=== PATIENT | female | born 1980 | race Caucasian/White ===

== ENCOUNTER 2021-06-04 15:47 | Observation (INO) ==
[2021-06-04] MEDS ORDERED: SODIUM CHLORIDE 0.9% 1000ML 2,000 ML IV ONE (16:06)
[2021-06-04] MEDS ORDERED: ONDANSETRON INJ 2 MG/ML 2 ML VIAL IV STA ×2 (16:17→18:56)
[2021-06-04] MEDS ORDERED: FAMOTIDINE 20MG IV PUSH 20 MG/5 ML SYR IV STA (16:17)
[2021-06-04] MEDS ORDERED: ACETAMINOPHEN 1,000 MG/100 ML VIAL IV STA (16:17)
[2021-06-04 16:23] LABS: Basophils # (auto) 0.02 K/uL (0-0.2); Basophils % (auto) 0.1 %; Eosinophils # (auto) 0.13 K/uL (0-0.5); Eosinophils % (auto) 0.8 %; Hemoglobin 14.6 g/dL (12.0-16.0); Immature Granulocytes # (auto) 0.05 K/uL (0.00-0.02); Immature Granulocytes % (auto) 0.3 %; Lymphocytes # (auto) 2.11 K/uL (1.2-3.4); Lymphocytes % (auto) 12.7 %; Mean Corpuscular Hemoglobin 31.8 pg (25-34); Mean Corpuscular Hgb Conc 33.2 g/dL (32-36); Mean Corpuscular Volume 95.9 fL (80-100); Mean Platelet Volume 9.6 fL (7.4-10.4); Monocytes # (auto) 0.84 K/uL (0.11-0.59); Monocytes % (auto) 5.1 %; Neutrophils # (auto) 13.44 K/uL (1.4-6.5); Platelet Count 289 K/uL (130-400); RDW Coefficient of Variation 14.1 % (11.5-14.5); RDW Standard Deviation 49.4 fL (36.4-46.3); Red Blood Count 4.59 M/uL (4.2-5.4); White Blood Count 16.59 K/uL (4.8-10.8)
--- NOTE | 2021-06-04 16:30 | Emergency Department Note ---
Impression & Plan Acute appendicitis, Syncope, vasovagal, Leukocytosis ED Provider Note NAME: JUANI LOVELACE AGE: 41 SEX: F ARRIVES VIA: Walk-In INFORMANT: Patient ED PROVIDER(S): Peng Ruiz MD CHIEF COMPLAINT: Abdominal pain, nausea. PLAN: Disposition: Admit MEDICAL DECISION MAKING: The patient is a 41-year-old woman with a past medical history of asthma, o varian cyst who presents to the emergency department for evaluation of abdominal pain coming by her which began today around 2:30 PM when the patient was taking a nap and began to fear severe pain. Per the patient's the patient has had no pain recently but has had flares of pain relating to an ovarian cyst. They deny any recent fevers, chills, cough, congestion, GI or symptoms. They are both vaccinated for COVID-19 and denies any known COVID-19 exposures. On arrival to the emergency department the patient was registered and while in the waiting room began to have worsening pain and fainted. There was report that the patient was not breathing and did not have pulses however as soon as staff evaluated this the patient was breathing and had pulses. Upon my observation of the patient when she entered into her room her color was normal her O2 saturation was 96% on room air her heart rate was normal as was blood pressure. She initially appeared limp as when RN would lift her arm she would let it fall to her body passively. Her eyelids were fluttering. However upon mild sternal rub the patient opened her eyes will answer questions and follow commands giving thumbs up when requested. Normal respiratory rate. The patient is afebrile and has stable vital signs. She appears clinically dry. She has mild lower abdominal tenderness. She has no focal neurologic deficits. EKG without overt acute ischemia. Chest x-ray negative for acute cardiopulmonary process. WBC 16.5K nonspecific. H/H and platelets within normal limits. Chemistry without metabolic acidosis. Electrolytes and LFTs are unremarkable. Troponin negative/undetectable. Procalcitonin is not elevated. hCG was negative. COVID-19 PCR was negative. Influenza PCR was negative. CT of the head negative for acute process. CT of the abdomen pelvis demonstrates acute appendicitis without abscess or perforation. Note is made of the patient's known ovarian cyst described as a 6.5 cm complex lesion containing a septation and has been present as far back as 2006. Additional note is made o f likely uterine fibroids. Patient was given morphine for pain as well as IV antibiotics with cefoxitin. Case was discussed with general surgery, Kelechi Rg PA-C with Dr. Osman general surgery on-call. They admitted the patient for further management/OR. Triage Nursing notes reviewed and agree them. Prior medical records reviewed Vital Signs: reviewed and remarkable for no significant abnormalities Differential diagnosis: Appendicitis, ovarian cyst, ovarian torsion, ectopic , TOA, PID, in fections, diverticulitis, UTI, obstruction, mesenteric ischemia, aortic pathology, inflammatory bowel disease, renal colic, PUD, pancreatitis, biliary pathology, hernia, volvulus, constipation, as well as other pathologies. ER treatment provided: See below. Diagnostics interpreted by me: ECG: Normal sinus rhythm, 64 bpm, no ectopy, no overt ST elevation or depression, QTC 445, QRS 72 Cardiac Monitoring: An order for continuous cardiac monitoring was placed and demonstrated Normal sinus rhythm, 64 bpm, no ectopy. Laboratory studies: See below Imaging studies: See below Consultation(s): Kelechi Rg PA-C with Dr. Osman general surgery on-call. HPI: The patient is a 41-year-old woman with a past medical history of asthma, ovarian cyst who presents to the emergency department for evaluation of abdominal pain coming by her which began today around 2:30 PM when the patient was taking a nap and began to fear severe pain. Per the patient's the patient has had no pain recently but has had flares of pain relating to an ovarian cyst. They deny any recent fevers, chills, cough, congestion, GI or symptoms. They are both vaccinated for COVID-19 and denies any known COVID-19 exposures. On arrival to the emergency department the patient was registered and while in the waiting room began to have worsening pain and fainted. There was report that the patient was not breathing and did not have pulses however as soon as staff evaluated this the patient was breathing and had pulses. Upon my observation of the patient when she entered into her room her color was normal her O2 saturation was 96% on room air her heart rate was normal as was blood pressure. She initially appeared limp as when RN would lift her arm she would let it fall to her body passively. Her eyelids were fluttering. However upon mild sternal rub the patient opened her eyes will answer questions and follow commands giving thumbs up when requested. Normal respiratory rate. ROS: See above HPI for pertinent positives & negatives. A total of 10 systems reviewed and were otherwise negative. PAST MEDICAL HISTORY:See Below PAST SURGICAL HISTORY:See Below FAMILY HISTORY:See Below SOCIAL HISTORY:See Below HOME MEDICATIONS:See Below ALLERGIES:See Below VITALS:See Below PHYSICAL EXAMINATION: GENERAL: Awake, alert, somnolent-appearing, in no distress HENT: Normocephalic, atraumatic. Oropharynx with dry mucous membranes and otherwise unremarkable. EYES: Normal conjunctiva. Sclera non-icteric. EOMI. No nystamgus. PEARRL. NECK: Supple. No nuchal rigidity. FROM. No JVD. RESPIRATORY: Clear to auscultation. CARDIAC: Regular rate, normal rhythm. Extremities warm and well perfused. Pulses equal. ABDOMEN: Soft, non-distended. Mild lower abdominal tenderness to palpation. No rebound or guarding. No masses. RECTAL: Deferred. MUSCULOSKELETAL: Chest examination reveals no tenderness. The back is symmetrical on inspection without obvious abnormality. There is no CVA tenderness to palpation. No joint edema. LOWER EXTREMITIES: Calves are equal size bilaterally and non-tender. No edema. No discoloration. NEURO: Normal sensorium. No sensory or motor deficits noted. 5/5 strength and SILT x 4 extremities. Cerebellar function intact including [id number], alternating palms, [id number]. SKIN: No rash or jaundice noted. Peng Ruiz MD Past Med/Surg History Medical History Asthma Ovarian cyst Family History Other Family history non-contributory Social History Smoking Status: Current every day smoker Hx Alcohol Use: Yes Feels Safe at Home: Yes Allergies Allergies Allergy/AdvReac Type Severity Reaction Status Date / Time bee venom protein (honey bee) Allergy Anaphylaxis Verified 06/04/21 17:27 erythromycin base AdvReac Unknown GI DISTRESS Unverified 06/04/21 17:27 Home Meds Home Medications Medication Instructions Recorded Confirmed ibuprofen 200 mg tablet 600 mg PO TID PRN 06/04/21 06/04/21 melatonin 5 mg tablet 15 mg PO HS 06/04/21 06/04/21 multivitamin 1 tab PO DAILY 06/04/21 06/04/21 Results & Data (ED) Vital Signs Vital Signs - 24 hr 06/04/21 16:06 06/04/21 16:14 06/04/21 16:20 Temperature Temperature Source Pulse Rate 58 L Pulse Rate [Apical] Pulse Rate [Right Finger] Pulse Rhythm Regular Pulse Rhythm [Apical] Pulse Rhythm [Right Finger] Pulse Strength Normal Pulse Strength [Right Finger] Respiratory Rate 14 Respiratory Effort / Characteristics Non-Labored Respiratory Depth Normal Respiratory Pattern Regular Blood Pressure 123/75 123/75 Blood Pressure [Left Arm] Blood Pressure [Right Arm] Blood Pressure Mean 91 91 Blood Pressure Mean [Left Arm] Blood Pressure Mean [Right Arm] Blood Pressure Position Lying Blood Pressure Position [Left Arm] Blood Pressure Position [Right Arm] Pulse Oximetry 96 96 Oxygen Delivery Method Room Air Room Air Oxygen Flow Rate Sepsis Recent Fever Within 48 Hours No Sepsis New/Unexplained Change in Mental Status No Sepsis Action Taken by Nursing No Action Required 06/04/21 16:27 06/04/21 16:36 06/04/21 16:37 Temperature Temperature Source Pulse Rate Pulse Rate [Apical] Pulse Rate [Right Finger] Pulse Rhythm Pulse Rhythm [Apical] Pulse Rhythm [Right Finger] Pulse Strength Pulse Strength [Right Finger] Respiratory Rate 20 Respiratory Effort / Characteristics Non-Labored Non-Labored Respiratory Depth Respiratory Pattern Blood Pressure 138/80 Blood Pressure [Left Arm] Blood Pressure [Right Arm] Blood Pressure Mean 99 Blood Pressure Mean [Left Arm] Blood Pressure Mean [Right Arm] Blood Pressure Position Blood Pressure Position [Left Arm] Blood Pressure Position [Right Arm] Pulse Oximetry 100 Oxygen Delivery Method Room Air Oxygen Flow Rate Sepsis Recent Fever Within 48 Hours Sepsis New/Unexplained Change in Mental Status Sepsis Action Taken by Nursing 06/04/21 16:51 06/04/21 17:00 06/04/21 17:06 Temperature Temperature Source Pulse Rate Pulse Rate [Apical] Pulse Rate [Right Finger] 59 L 62 Pulse Rhythm Pulse Rhythm [Apical] Pulse Rhythm [Right Finger] Regular Regular Pulse Strength Pulse Strength [Right Finger] Normal Normal Respiratory Rate 20 20 Respiratory Effort / Characteristics Non-Labored Non-Labored Respiratory Depth Normal Normal Respiratory Pattern Blood Pressure 135/56 L Blood Pressure [Left Arm] Blood Pressure [Right Arm] 135/56 L 148/81 H Blood Pressure Mean 82 Blood Pressure Mean [Left Arm] Blood Pressure Mean [Right Arm] 82 103 Blood Pressure Position Blood Pressure Position [Left Arm] Blood Pressure Position [Right Arm] Lying Lying Pulse Oximetry 100 100 Oxygen Delivery Method Room Air Room Air Oxygen Flow Rate Sepsis Recent Fever Within 48 Hours Sepsis New/Unexplained Change in Mental Status Sepsis Action Taken by Nursing 06/04/21 17:08 06/04/21 17:30 06/04/21 17:48 Temperature Temperature Source Pulse Rate Pulse Rate [Apical] Pulse Rate [Right Finger] 63 Pulse Rhythm Pulse Rhythm [Apical] Pulse Rhythm [Right Finger] Regular Pulse Strength Pulse Strength [Right Finger] Normal Respiratory Rate 19 20 Respiratory Effort / Characteristics Non-Labored Non-Labored Respiratory Depth Normal Respiratory Pattern Regular Blood Pressure 148/81 H 135/76 Blood Pressure [Left Arm] Blood Pressure [Right Arm] 133/75 Blood Pressure Mean 103 95 Blood Pressure Mean [Left Arm] Blood Pressure Mean [Right Arm] 94 Blood Pressure Position Blood Pressure Position [Left Arm] Blood Pressure Position [Right Arm] Lying Pulse Oximetry 95 100 Oxygen Delivery Method Room Air Room Air Oxygen Flow Rate Sepsis Recent Fever Within 48 Hours Sepsis New/Unexplained Change in Mental Status Sepsis Action Taken by Nursing 06/04/21 18:00 06/04/21 18:15 06/04/21 18:30 Temperature Temperature Source Pulse Rate 64 62 62 Pulse Rate [Apical] Pulse Rate [Right Finger] Pulse Rhythm Pulse Rhythm [Apical] Pulse Rhythm [Right Finger] Pulse Strength Pulse Strength [Right Finger] Respiratory Rate 18 18 Respiratory Effort / Characteristics Non-Labored Non-Labored Respiratory Depth Respiratory Pattern Blood Pressure 159/90 H 133/75 146/82 H Blood Pressure [Left Arm] Blood Pressure [Right Arm] Blood Pressure Mean 113 94 103 Blood Pressure Mean [Left Arm] Blood Pressure Mean [Right Arm] Blood Pressure Position Blood Pressure Position [Left Arm] Blood Pressure Position [Right Arm] Pulse Oximetry 100 99 99 Oxygen Delivery Method Room Air Room Air Oxygen Flow Rate Sepsis Recent Fever Within 48 Hours Sepsis New/Unexplained Change in Mental Status Sepsis Action Taken by Nursing 06/04/21 19:30 06/04/21 21:25 06/04/21 21:35 Temperature 36.8 C Temperature Source Temporal Artery Scan Pulse Rate 68 Pulse Rate [Apical] 111 H 86 Pulse Rate [Right Finger] Pulse Rhythm Pulse Rhythm [Apical] Regular Regular Pulse Rhythm [Right Finger] Pulse Strength Pulse Strength [Right Finger] Respiratory Rate 16 16 16 Respiratory Effort / Characteristics Non-Labored Non-Labored Respiratory Depth Normal Normal Respiratory Pattern Regular Regular Blood Pressure 120/70 Blood Pressure [Left Arm] 137/65 125/57 L Blood Pressure [Right Arm] Blood Pressure Mean 86 Blood Pressure Mean [Left Arm] 89 79 Blood Pressure Mean [Right Arm] Blood Pressure Position Blood Pressure Position [Left Arm] Lying Lying Blood Pressure Position [Right Arm] Pulse Oximetry 98 100 100 Oxygen Delivery Method Oxymask Oxymask Oxygen Flow Rate 4 2 Sepsis Recent Fever Within 48 Hours Sepsis New/Unexplained Change in Mental Status Sepsis Action Taken by Nursing 06/04/21 21:45 06/04/21 21:55 Temperature Temperature Source Pulse Rate Pulse Rate [Apical] 76 72 Pulse Rate [Right Finger] Pulse Rhythm Pulse Rhythm [Apical] Regular Regular Pulse Rhythm [Right Finger] Pulse Strength Pulse Strength [Right Finger] Respiratory Rate 16 16 Respiratory Effort / Characteristics Non-Labored Non-Labored Respiratory Depth Normal Normal Respiratory Pattern Regular Regular Blood Pressure Blood Pressure [Left Arm] 118/58 L 111/60 Blood Pressure [Right Arm] Blood Pressure Mean Blood Pressure Mean [Left Arm] 78 77 Blood Pressure Mean [Right Arm] Blood Pressure Position Blood Pressure Position [Left Arm] Lying Lying Blood Pressure Position [Right Arm] Pulse Oximetry 100 100 Oxygen Delivery Method Oxymask Oxymask Oxygen Flow Rate 2 2 Sepsis Recent Fever Within 48 Hours Sepsis New/Unexplained Change in Mental Status Sepsis Action Taken by Nursing Laboratory Data Attestation: I reviewed the patient's lab results. Result diagrams: 06/04/21 16:11 06/04/21 16:11 Lab Results 06/04/21 06/04/21 06/04/21 Range/Units 16:11 16:11 16:11 WBC 16.59 H (4.8-10.8) K/uL RBC 4.59 (4.2-5.4) M/uL Hgb 14.6 (12.0-16.0) g/dL Hct 44.0 (37-47) % MCV 95.9 (80-100) fL MCH 31.8 (25-34) pg MCHC 33.2 (32-36) g/dL RDW Std Deviation 49.4 H (36.4-46.3) fL RDW Coeff of Nikos 14.1 (11.5-14.5) % Plt Count 289 (130-400) K/uL MPV 9.6 (7.4-10.4) fL Immature Gran % (Auto) 0.3 % Neut % (Auto) 81.0 % Lymph % (Auto) 12.7 % Imperial % (Auto) 5.1 % Eos % (Auto) 0.8 % Baso % (Auto) 0.1 % Neut # (Auto) 13.44 H (1.4-6.5) K/uL Lymph # (Auto) 2.11 (1.2-3.4) K/uL Imperial # (Auto) 0.84 H (0.11-0.59) K/uL Eos # (Auto) 0.13 (0-0.5) K/uL Baso # (Auto) 0.02 (0-0.2) K/uL Immature Gran # (Auto) 0.05 H (0.00-0.02) K/uL PT Cancelled INR Cancelled APTT Cancelled PTT Ratio Cancelled Sodium 139 (136-145) mmol/L Potassium 3.8 (3.5-5.1) mmol/L Chloride 106 (98-107) mmol/L Carbon Dioxide 26 (21-32) mmol/L Anion Gap 7.0 (3-11) BUN 12 (7-18) mg/dl Creatinine 0.94 (0.6-1.2) mg/dl Est Cr Clr Drug Dosing 78.6 ml/min Est GFR ( Amer) 86.7 ml/min Est GFR (Non-Af Amer) 74.8 ml/min BUN/Creatinine Ratio 12.4 (10-20) Glucose 102 H (70-99) mg/dl Lactate (0.4-2.0) mmol/L Calcium 9.4 (8.5-10.1) mg/dl Phosphorus 2.5 (2.5-4.9) mg/dl Magnesium 2.2 (1.8-2.4) mg/dl Total Bilirubin 0.3 (0.2-1) mg/dl AST 11 L (15-37) U/L ALT 21 (12-78) Alkaline Phosphatase 46 (45-117) U/L Troponin I < 0.015 (0-0.045) ng/ml Total Protein 7.1 (6.4-8.2) gm/dl Albumin 4.0 (3.4-5.0) gm/dl Globulin 3.1 (2.5-4.0) gm/dl Albumin/Globulin Ratio 1.3 (0.9-2) Procalcitonin (0-0.5) ng/ml HCG, Qual (Negative) SARS-CoV-2 (PCR) (Negative) Influenza Type A (PCR) (Neg) Influenza Type B (PCR) (Neg) RSV (RT-PCR) (Neg) 06/04/21 06/04/21 06/04/21 Range/Units 16:11 16:11 16:55 WBC (4.8-10.8) K/uL RBC (4.2-5.4) M/uL Hgb (12.0-16.0) g/dL Hct (37-47) % MCV (80-100) fL MCH (25-34) pg MCHC (32-36) g/dL RDW Std Deviation (36.4-46.3) fL RDW Coeff of Nikos (11.5-14.5) % Plt Count (130-400) K/uL MPV (7.4-10.4) fL Immature Gran % (Auto) % Neut % (Auto) % Lymph % (Auto) % Imperial % (Auto) % Eos % (Auto) % Baso % (Auto) % Neut # (Auto) (1.4-6.5) K/uL Lymph # (Auto) (1.2-3.4) K/uL Imperial # (Auto) (0.11-0.59) K/uL Eos # (Auto) (0-0.5) K/uL Baso # (Auto) (0-0.2) K/uL Immature Gran # (Auto) (0.00-0.02) K/uL PT Cancelled INR Cancelled APTT Cancelled PTT Ratio Cancelled Sodium (136-145) mmol/L Potassium (3.5-5.1) mmol/L Chloride (98-107) mmol/L Carbon Dioxide (21-32) mmol/L Anion Gap (3-11) BUN (7-18) mg/dl Creatinine (0.6-1.2) mg/dl Est Cr Clr Drug Dosing ml/min Est GFR ( Amer) ml/min Est GFR (Non-Af Amer) ml/min BUN/Creatinine Ratio (10-20) Glucose (70-99) mg/dl Lactate 1.1 (0.4-2.0) mmol/L Calcium (8.5-10.1) mg/dl Phosphorus (2.5-4.9) mg/dl Magnesium (1.8-2.4) mg/dl Total Bilirubin (0.2-1) mg/dl AST (15-37) U/L ALT (12-78) Alkaline Phosphatase (45-117) U/L Troponin I (0-0.045) ng/ml Total Protein (6.4-8.2) gm/dl Albumin (3.4-5.0) gm/dl Globulin (2.5-4.0) gm/dl Albumin/Globulin Ratio (0.9-2) Procalcitonin < 0.05 (0-0.5) ng/ml HCG, Qual Negative (Negative) SARS-CoV-2 (PCR) (Negative) Influenza Type A (PCR) (Neg) Influenza Type B (PCR) (Neg) RSV (RT-PCR) (Neg) 06/04/21 06/04/21 Range/Units 17:31 18:10 WBC (4.8-10.8) K/uL RBC (4.2-5.4) M/uL Hgb (12.0-16.0) g/dL Hct (37-47) % MCV (80-100) fL MCH (25-34) pg MCHC (32-36) g/dL RDW Std Deviation (36.4-46.3) fL RDW Coeff of Nikos (11.5-14.5) % Plt Count (130-400) K/uL MPV (7.4-10.4) fL Immature Gran % (Auto) % Neut % (Auto) % Lymph % (Auto) % Imperial % (Auto) % Eos % (Auto) % Baso % (Auto) % Neut # (Auto) (1.4-6.5) K/uL Lymph # (Auto) (1.2-3.4) K/uL Imperial # (Auto) (0.11-0.59) K/uL Eos # (Auto) (0-0.5) K/uL Baso # (Auto) (0-0.2) K/uL Immature Gran # (Auto) (0.00-0.02) K/uL PT 10.3 INR 1.0 APTT 27.1 PTT Ratio 1.0 Sodium (136-145) mmol/L Potassium (3.5-5.1) mmol/L Chloride (98-107) mmol/L Carbon Dioxide (21-32) mmol/L Anion Gap (3-11) BUN (7-18) mg/dl Creatinine (0.6-1.2) mg/dl Est Cr Clr Drug Dosing ml/min Est GFR ( Amer) ml/min Est GFR (Non-Af Amer) ml/min BUN/Creatinine Ratio (10-20) Glucose (70-99) mg/dl Lactate (0.4-2.0) mmol/L Calcium (8.5-10.1) mg/dl Phosphorus (2.5-4.9) mg/dl Magnesium (1.8-2.4) mg/dl Total Bilirubin (0.2-1) mg/dl AST (15-37) U/L ALT (12-78) Alkaline Phosphatase (45-117) U/L Troponin I (0-0.045) ng/ml Total Protein (6.4-8.2) gm/dl Albumin (3.4-5.0) gm/dl Globulin (2.5-4.0) gm/dl Albumin/Globulin Ratio (0.9-2) Procalcitonin (0-0.5) ng/ml HCG, Qual (Negative) SARS-CoV-2 (PCR) NEGATIVE (Negative) Influenza Type A (PCR) Negative (Neg) Influenza Type B (PCR) Negative (Neg) RSV (RT-PCR) Negative (Neg) Administered Medications Acetaminophen (Ofirmev) 1,000 mg in 100 mls @ 400 mls/hr IV Q8H PRN PRN Reason: pain Stop: 06/07/21 19:39 Last Infusion: 06/04/21 23:55 Dose: 0 mls/hr Documented by: [id number] Admin: 06/04/21 23:40 Dose: 400 mls/hr Documented by: [id number] Cefoxitin Sodium 1,000 mg/ (Dextrose) 60 mls @ 100 mls/hr IV Q6H GRICELDA Stop: 06/15/21 00:00 Last Admin: 06/05/21 00:31 Dose: 100 mls/hr Documented by: [id number] Lactated Ringer's (Lr) 1,000 mls @ 75 mls/hr IV .[id number] [facility] Stop: 07/04/21 22:35 Last Admin: 06/04/21 22:42 Dose: 75 mls/hr Documented by: [id number] Discontinued Medications Bupivacaine HCl/Epinephrine Bitart (Bupivacaine/Epinephrine 0.25% 1:200,000 30 Ml Vial) Confirm Administered Dose 30 ml .ROUTE .STK-MED ONE Stop: 06/04/21 20:11 Last Admin: 06/04/21 21:07 Dose: 30 ml Documented by: [id number] Sodium Chloride (Nss 1000ml) 2,000 mls @ 999 mls/hr IV .Q2H1M ONE Stop: 06/04/21 18:06 Last Infusion: 06/04/21 18:59 Dose: 0 mls/hr Documented by: [id number] Admin: 06/04/21 16:55 Dose: 999 mls/hr Documented by: [id number] Acetaminophen (Ofirmev) 1,000 mg in 100 mls @ 400 mls/hr IV NOW STA Stop: 06/04/21 16:31 Last Admin: 06/04/21 16:55 Dose: Not Given Documented by: [id number] Famotidine (Pepcid 20mg Iv Push) 20 mg in 5 mls @ 2.5 mls/min IV NOW STA Stop: 06/04/21 16:18 Last Admin: 06/04/21 16:56 Dose: 2.5 mls/min Documented by: [id number] Cefoxitin Sodium (Mefoxin) 2,000 mg in 60 mls @ 100 mls/hr IV NOW STA Stop: 06/04/21 19:31 Last Infusion: 06/04/21 22:38 Dose: 0 mls/hr Documented by: [id number] Admin: 06/04/21 19:09 Dose: 100 mls/hr Documented by: [id number] Ioversol (Optiray 320 100ml) 94 ml IV ONCE ONE Stop: 06/04/21 17:46 Last Admin: 06/04/21 17:51 Dose: 94 ml Documented by: [id number] Morphine Sulfate (Morphine Sulfate 4 Mg/Ml 1 Ml Carp\Vial) Confirm Administered Dose 4 mg .ROUTE .STK-MED ONE Stop: 06/04/21 18:46 Last Admin: 06/04/21 18:49 Dose: 4 mg Documented by: [id number] Ondansetron HCl (Ondansetron Inj 2 Mg/Ml 2 Ml Vial) 4 mg IV NOW STA Stop: 06/04/21 16:18 Last Admin: 06/04/21 16:56 Dose: 4 mg Documented by: [id number] Ondansetron HCl (Ondansetron Inj 2 Mg/Ml 2 Ml Vial) 4 mg IV NOW STA Stop: 06/04/21 18:57 Last Admin: 06/04/21 19:09 Dose: 4 mg Documented by: [id number] Imaging Data Radiologist's Impression: Chest X-Ray 06/04/21 16:06 SINGLE VIEW CHEST CLINICAL HISTORY: Sepsis FINDINGS: An AP, portable, upright chest radiograph is compared to study dated 11/02/2017. The cardiomediastinal silhouette is unremarkable. The lungs and pleural spaces are clear. No pneumothorax is seen. The bony thorax is grossly intact. IMPRESSION: No active disease in the chest. ACT 112: Negative or not required by law. Electronically signed by: Quirino Montemayor M.D. 06/04/2021 4:45 PM Abdomen/Pelvis CT 06/04/21 16:17 CT SCAN OF THE ABDOMEN AND PELVIS WITH IV CONTRAST CLINICAL HISTORY: Generalized abdominal pain. Diarrhea. COMPARISON STUDY: Abdominal CT dated 11/02/2017. Pelvic CT dated 05/30/2007. TECHNIQUE: Following the IV administration of 94 cc of Optiray 320, CT scan of the abdomen and pelvis is performed from the lung bases to the proximal femora. Images are reviewed in the axial, sagittal, and coronal planes. IV contrast was administered without complication. A dose lowering technique was utilized adhering to the principles of ALARA. There is streak artifact from the arms which could not be elevated above the abdomen. CT DOSE: 630.27 mGy.cm FINDINGS: Lung bases: The heart is normal in size and without pericardial effusion. The lung bases are clear noting dependent atelectasis. A tiny hiatal hernia is not ed. Liver: The contrast-enhanced liver is normal in size, contour, and attenuation. There is no intrahepatic biliary ductal dilatation. The hepatic veins and portal veins are patent. Periportal edema is noted. Gallbladder: Unremarkable. Spleen: Normal in size and attenuation. Pancreas: Unremarkable. Adrenal glands: Unremarkable. Kidneys: The contrast enhanced kidneys are normal in size and without hydronephrosis. The kidneys enhance symmetrically. Abdominal vasculature: The abdominal aorta is normal in course and caliber. Bowel: The small bowel and colon are normal in course and caliber. There is no bowel obstruction. The appendix is dilated, measuring up to 13 mm in diameter. The appendiceal wall is thickened and hyperemic and there is periappendiceal inflammation. A calcified appendicolith is noted at the base of the appendix on image #[id number]. The appendix is partially filled with foci of gas noted. No periappendiceal fluid collection is identified. Peritoneum: There is no intraperitoneal free air or abdominal ascites. There is a fat-containing umbilical hernia. Lymphadenopathy: Prominent mesenteric lymph nodes in the right lower quadrant measure up to 9 mm short axis. These are likely reactive. Pelvic viscera: The bladder is normal as visualized. The uterus is enlarged and heterogeneous with mass lesions suggested. These are pathologically indeterminant but typical for fibroids. There is an approximately 6.5 x 6 cm complex lesion containing a septation posterior to the uterus, likely related to the right ovary. This is best seen on image #347 and was also present on 2018 and 2006 examinations. Small follicles are noted in the left ovary. Skeletal structures: No lytic or blastic lesions are seen. IMPRESSION: 1. Findings are consistent with acute appendicitis. There is no evidence of abscess or perforation. 2. Uterine masses are pathologically indeterminant but typical for fibroids. 3. There is a 6.5 cm complex lesion containing a septation posterior to the uterus and likely related to the right ovary. This has been present on prior exa minations dating back to 2006. This is pathologically indeterminant, and a hemorrhagic lesion/endometrioma could have this appearance. Given that this is been present for several years and has modestly enlarged a nonemergent pelvic ultrasound and gynecology evaluation are recommended. 4. Additional findings as above. ACT 112: Positive. There are findings on this exam that require communication between the performing entity and the patient following Patient Test Result Information Act ([place] Act 112) guidelines. Electronically signed by: Quirino Montemayor M.D. 06/04/2021 6:[address] 06/04/21 16:17 CT SCAN OF THE BRAIN WITHOUT IV CONTRAST CLINICAL HISTORY: Syncope. COMPARISON STUDY: No priors. TECHNIQUE: Unenhanced axial CT scan of the brain is performed from the vertex to the skull base. A dose lowering technique was utilized adhering to the principles of ALARA. CT DOSE: 537.48 mGy.cm FINDINGS: Brain parenchyma: The brain parenchyma is normal in appearance. There is no hemorrhage, mass effect, or evidence of acute territorial ischemia by CT criteria. Frausto-white matter differentiation is preserved. No extra-axial fluid collection is seen. Ventricles, sulci, cisterns: Normal in configuration. Intracranial vasculature: The visualized intracranial vasculature at the skull base is normal in appearance. Calvarium: Unremarkable. Sinuses and mastoids: The visualized paranasal sinuses are clear. The mastoid air cells are well pneumatized. Orbits: The bony orbits are grossly intact. IMPRESSION: No acute intracranial abnormality. ACT 112: Negative or not required by law. Electronically signed by: Quirino Montemayor M.D. 06/04/2021 5:54 PM Discharge Plan Visit Data Chief Complaint: Abdominal Pain Stated Complaint: SEVERE ABD PAIN FROM RIBS DOWN,THINK OVARIAN CYST Discharge Problem: Acute appendicitis, Syncope, vasovagal, Leukocytosis Discharge Instructions Interventions: ED Discharge Assessment Last Done: 06/04/21 19:48 Discharge Problem: Acute appendicitis Qualifiers: Acute appendicitis type: with localized peritonitis Appendicitis gangrene presence: without gangrene Appendicitis perforation presence: without perforation Appendicitis abscess presence: without abscess Qualified Code(s): K35.30 - Acute appendicitis with localized peritonitis, without perforation or gangrene Leukocytosis Qualifiers: Leukocytosis type: unspecified Qualified Code(s): D72.829 - Elevated white blood cell count, unspecified
[2021-06-04 16:43] LABS: Alanine Aminotransferase 21 (12-78); Aspartate Aminotransferase 11 U/L (15-37); BUN Creatinine Ratio 12.4 (10-20); Blood Urea Nitrogen 12 mg/dl (7-18); Calcium 9.4 mg/dl (8.5-10.1); Carbon Dioxide 26 mmol/L (21-32); Chloride 106 mmol/L (98-107); Creatinine Clr Calc Pharmacy 78.6 ml/min; Est GFR (African American) 86.7 ml/min; Est GFR (Non-African American) 74.8 ml/min; Glucose 102 mg/dl (70-99); Magnesium 2.2 mg/dl (1.8-2.4); Potassium 3.8 mmol/L (3.5-5.1); Sodium 139 mmol/L (136-145)
--- NOTE | 2021-06-04 16:47 | XRay Report ---
SINGLE VIEW CHEST CLINICAL HISTORY: Sepsis FINDINGS: An AP, portable, upright chest radiograph is compared to study dated 11/02/2017. The cardiome diastinal silhouette is unremarkable. The lungs and pleural spaces are clear. No pneumothorax is seen . The bony thorax is grossly intact. IMPRESSION: No active disease in the chest. ACT 112: Negative or not required by law. Electronically signed by: Quirino Montemayor M.D. 06/04/2021 4:45 PM
[2021-06-04 16:48] LABS: Albumin Globulin Ratio 1.3 (0.9-2); Alkaline Phosphatase 46 U/L (45-117); Bilirubin,Total 0.3 mg/dl (0.2-1); Globulin 3.1 gm/dl (2.5-4.0); Phosphorus 2.5 mg/dl (2.5-4.9); Total Protein 7.1 gm/dl (6.4-8.2); Troponin I < 0.015 ng/ml (0-0.045)
[2021-06-04 17:10] LABS: Procalcitonin < 0.05 ng/ml (0-0.5)
[2021-06-04 17:23] LABS: Pregnancy Test, Serum Negative (Negative)
[2021-06-04] MEDS ORDERED: OPTIRAY 320 100ml IV ONE (17:45)
--- NOTE | 2021-06-04 17:56 | CT Scan Report ---
CT SCAN OF THE BRAIN WITHOUT IV CONTRAST CLINICAL HISTORY: Syncope. COMPARISON STUDY: No priors. TECHNIQUE: Unenhanced axial CT scan of the brain is performed from the vertex to the skull base. A d ose lowering technique was utilized adhering to the principles of ALARA. CT DOSE: 537.48 mGy.cm FINDINGS: Brain parenchyma: The brain parenchyma is normal in appearance. There is no hemorrhage, mass effect, or evidence of acute territorial ischemia by CT criteria. Frausto-white matter differentiation is preser becky. No extra-axial fluid collection is seen. Ventricles, sulci, cisterns: Normal in configuration. Intracranial vasculature: The visualized intracranial vasculature at the skull base is normal in appe arance. Calvarium: Unremarkable. Sinuses and mastoids: The visualized paranasal sinuses are clear. The mastoid air cells are well pneu matized. Orbits: The bony orbits are grossly intact. IMPRESSION: No acute intracranial abnormality. ACT 112: Negative or not required by law. Electronically signed by: Quirino Montemayor M.D. 06/04/2021 5:54 PM
[2021-06-04 17:59] LABS: Partial Thromboplastin Time 27.1 Seconds (21.0-31.0); Prothrombin Time 10.3 Seconds (9.0-12.0)
--- NOTE | 2021-06-04 18:15 | CT Scan Report ---
CT SCAN OF THE ABDOMEN AND PELVIS WITH IV CONTRAST CLINICAL HISTORY: Generalized abdominal pain. Diarrhea. COMPARISON STUDY: Abdominal CT dated 11/02/2017. Pelvic CT dated 05/30/2007. TECHNIQUE: Following the IV administration of 94 cc of Optiray 320, CT scan of the abdomen and pelvi s is performed from the lung bases to the proximal femora. Images are reviewed in the axial, sagittal , and coronal planes. IV contrast was administered without complication. A dose lowering technique wa s utilized adhering to the principles of ALARA. There is streak artifact from the arms which could no t be elevated above the abdomen. CT DOSE: 630.27 mGy.cm FINDINGS: Lung bases: The heart is normal in size and without pericardial effusion. The lung bases are clear no ting dependent atelectasis. A tiny hiatal hernia is noted. Liver: The contrast-enhanced liver is normal in size, contour, and attenuation. There is no intrahepa tic biliary ductal dilatation. The hepatic veins and portal veins are patent. Periportal edema is not ed. Gallbladder: Unremarkable. Spleen: Normal in size and attenuation. Pancreas: Unremarkable. Adrenal glands: Unremarkable. Kidneys: The contrast enhanced kidneys are normal in size and without hydronephrosis. The kidneys enh ance symmetrically. Abdominal vasculature: The abdominal aorta is normal in course and caliber. Bowel: The small bowel and colon are normal in course and caliber. There is no bowel obstruction. The appendix is dilated, measuring up to 13 mm in diameter. The appendiceal wall is thickened and hypere katie and there is periappendiceal inflammation. A calcified appendicolith is noted at the base of the appendix on image #280. The appendix is partially filled with foci of gas noted. No periappendiceal f luid collection is identified. Peritoneum: There is no intraperitoneal free air or abdominal ascites. There is a fat-containing umbi lical hernia. Lymphadenopathy: Prominent mesenteric lymph nodes in the right lower quadrant measure up to 9 mm shor t axis. These are likely reactive. Pelvic viscera: The bladder is normal as visualized. The uterus is enlarged and heterogeneous with ma ss lesions suggested. These are pathologically indeterminant but typical for fibroids. There is an ap proximately 6.5 x 6 cm complex lesion containing a septation posterior to the uterus, likely related to the right ovary. This is best seen on image #347 and was also present on 2017 and 2006 examination s. Small follicles are noted in the left ovary. Skeletal structures: No lytic or blastic lesions are seen. IMPRESSION: 1. Findings are consistent with acute appendicitis. There is no evidence of abscess or perforation. 2. Uterine masses are pathologically indeterminant but typical for fibroids. 3. There is a 6.5 cm complex lesion containing a septation posterior to the uterus and likely related to the right ovary. This has been present on prior examinations dating back to 2006. This is patholo gically indeterminant, and a hemorrhagic lesion/endometrioma could have this appearance. Given that t his is been present for several years and has modestly enlarged a nonemergent pelvic ultrasound and g ynecology evaluation are recommended. 4. Additional findings as above. ACT 112: Positive. There are findings on this exam that require communication between the performing entity and the patient following Patient Test Result Information Act ([place] Act 112) guidelines. Electronically signed by: Quirino Montemayor M.D. 06/04/2021 6:14 PM
[2021-06-04] MEDS ORDERED: MoRPHine SULFATE 4 MG/ML 1 ML CARP\\VIAL ONE (18:45)
[2021-06-04 18:55] LABS: Influenza A virus by PCR Negative (Neg); Influenza B virus by PCR Negative (Neg); RSV by PCR Negative (Neg); SARS CoV2 RNA(COVID-19) InHosp NEGATIVE (Negative)
[2021-06-04] MEDS ORDERED: cefOXitin 2,000 MG/60 ML BAG IV STA (18:56)
--- NOTE | 2021-06-04 19:27 | History & Physical Report ---
Date of Service June 04, 2021 Assessment & Plan (1) Appendicitis: Plan: Due to the patient's clinical presentation, labs, and CT scan findings we will plan on the following: We will keep the patient n.p.o. We will provide analgesics We will provide antiemetics We will hydrate her gently with IV fluids Antibiotics will be administered, the treating emergency room physician has already ordered cefoxitin which is being administered We will plan on a laparoscopic possible open appendectomy. I discussed the risks, benefits, and alternatives with the patient and her at bedside and they wish to proceed. A Covid test has been ordered and is noted to be negative Further recommendations to be made based on operative findings History of Present Illness Chief Complaint: Abdominal pain Primary Care Provider: Alcon Tirado DO This is a 41-year-old female with no prior abdominal surgical history. The patient notes that she developed abdominal pain approximately 10:00 AM this morning. She notes that she has a history of ovarian cysts and felt that this was potentially the problem so she did not seek medical attention immediately. She notes that the pain is primary located in the right lower quadrant. She has associated nausea vomiting. She has not had any known fevers, shakes, chills. She does not note any modifying factors other than that the pain is provoked with any movement or palpation of her abdomen. Her most recent oral intake was at approximate 12:00 PM today. Did discuss with the treating emergency room physician and apparently the patient was experiencing some worsening pain in the emergency department waiting room had a syncopal or near syncopal episode while she was in the waiting room. Treating emergency room physician notes that the patient had recovered from this by the time he was able to evaluate her and his ensuing evaluation did not reveal any significant pathological findings that would have ascertain the etiology of this episode. In the emergency department patient had labs and imaging which independent reviewed. CBC revealed white blood cell count was 16.5. Hemoglobin, hematocrit, and platelet count are all within normal range. Coagulation studies were noted to be normal. Chemistry profile showed sodium, potassium, BUN, and creatinine were all noted be normal. Lactic acid was never noted to be normal. She did not have any elevation of her LFTs. Procalcitonin levels not elevated. A test is noted be negative. The patient was tested for COVID-19, influenza A, influenza B, and RSV all of which were negative. An EKG showed normal sinus rhythm. There is no evidence of acute ischemia.Chest x-ray was performed and was noted that showed no active disease in the chest. CT scan of the head showed no acute intracranial abnormalities. A CT scan of the abdomen and pelvis showed the patient had findings consistent with acute appendicitis. By CT scan there is no evidence of abscess or perforation. Patient was noted to have uterine masses that were felt to represent fibroids. There was also a 6.5 cm lesion containing a septation near the uterus which was felt to be related to an ovary. This finding was noted on prior CAT scans dating back to 2006. At the time of my interview the patient was resting comfortably bed she was no distress. Allergies Allergy/AdvReac Type Severity Reaction Status Date / Time bee venom protein (honey bee) Allergy Anaphylaxis Verified 06/04/21 17:27 erythromycin base AdvReac Unknown GI DISTRESS Unverified 06/04/21 17:27 Home Medications Medication Instructions Recorded Confirmed Type ibuprofen 200 mg tablet 600 mg PO TID PRN 06/04/21 06/04/21 History melatonin 5 mg tablet 15 mg PO HS 06/04/21 06/04/21 History multivitamin 1 tab PO DAILY 06/04/21 06/04/21 History Past Med/Surg History Social History Smoking Status: Current every day smoker Feels Safe at Home: Yes Review of Systems Constitutional: no fever and no chills Eyes: no blind spots Ear, Nose, Mouth, Throat: no ear pain Respiratory: no cough and no dyspnea Cardiovascular: no chest pain Gastrointestinal: + abdominal pain, + nausea and + vomiting Genitourinary: no dysuria Musculoskeletal: no back pain Integumentary: no rash Neurologic: no localized weakness Physical Exam Constitutional: well developed and well nourished; no acute distress Eyes: no conjunctival abnormality ENMT: Ears: no hearing impairment Neck: trachea midline Respiratory: normal respiratory effort, lungs clear to auscultation Gastrointestinal (Abdomen): Abdomen is soft and nondistended. Patient had mar ked pain in the right lower quadrant over McBurney's point. There is associated rebound tenderness. Musculoskeletal: No calf tenderness Skin: no rashes Neurologic: moves all extremities Psychiatric: Orientation: alert and oriented x 3 Results & Data Results & Data ([place]) Vital Signs (Past 12 Hours) Vital Signs Pulse Pulse Resp BP BP Pulse Ox 06/04/21 18:30 62 18 146/82 H 99 06/04/21 18:15 62 133/75 99 06/04/21 18:00 64 18 159/90 H 100 06/04/21 17:48 63 20 133/75 100 06/04/21 17:30 19 135/76 95 06/04/21 17:08 148/81 H 06/04/21 17:06 62 20 148/81 H 100 06/04/21 17:00 135/56 L 06/04/21 16:51 59 L 20 135/56 L 100 06/04/21 16:37 138/80 06/04/21 16:36 20 100 06/04/21 16:20 58 L 14 123/75 96 06/04/21 16:14 123/75 06/04/21 16:06 96 Supervising Physician Co-Signing Physician Notes I personally saw and evaluated the patient with Kelechi Rg PA-C and agree with the assessment and plan 41-year-old female with acute appendicitis CT images and results reviewed, consistent with acute appendicitis Keep n.p.o. give IV antibiotics We will take her to the operating room today for laparoscopic appendectomy, possible open Consent obtained, risks discussed including bleeding, infection, leak, abscess PG Care Time/CCT Total # of Minutes Spent Total Time Spent with Patient: Total time spent is greater than 50% in coordination of care (as documented) at patient's floor/unit and/or counseling patient: Coding Level of Care Code INT OBSERVATION CARE 70M LVL 3 Diagnoses Appendicitis K37
[2021-06-04] MEDS ORDERED: ONDANSETRON INJ 2 MG/ML 2 ML VIAL IV PRN (19:40)
[2021-06-04] MEDS ORDERED: MoRPHine SULFATE 2 MG/ML CARP IV PRN (19:40)
[2021-06-04] MEDS ORDERED: ACETAMINOPHEN 1,000 MG/100 ML VIAL IV PRN (19:40)
[2021-06-04] MEDS ORDERED: SUCCINYLCHOLINE CHLORIDE 20 MG/ML 10 ML VIAL IV ONE (20:02)
[2021-06-04] MEDS ORDERED: PROPOFOL IV EMULSION 10 MG/ML 20 ML VIAL IV ONE (20:02)
[2021-06-04] MEDS ORDERED: ROCURONIUM BROMIDE 10 MG/ML 5 ML VIAL IV ONE (20:02)
[2021-06-04] MEDS ORDERED: fentaNYL citrate 100 MCG/2 ML VIAL ONE ×2 (20:02→20:44)
[2021-06-04] MEDS ORDERED: LIDOCAINE 2% 2 ML VIAL/AMP(20MG/ML) INFIL ONE (20:02)
[2021-06-04] MEDS ORDERED: BUPIVACAINE/EPINEPHRINE 0.25% 1:200,000 30 ML VIAL ONE (20:10)
--- NOTE | 2021-06-04 20:19 | Anesthesiology Consultation ---
Date of Service June 04, 2021 Assessment & Plan Chart Review Chart Review: Acceptable Risk for Surgery and Patient NOT seen in Pre Admission Testing Consults Requested none ASA ASA2 Proposed Anesthesia Anesthesia Type: General Risk / Benefits Reviewed With: PT / POA / Parent / Guardian, Accepts Plan and Informed Consent Obtained History Surgery Operation Date: 06/04/21 20:00 Proposed Procedures p Laparoscopic Cholecystectomy - Bipin Osman, DO Height/Weight Height: 5 ft 9 in Weight: 79.3 kg Allergies Allergy/AdvReac Type Severity Reaction Status Date / Time bee venom protein (honey bee) Allergy Anaphylaxis Verified 06/04/21 17:27 erythromycin base AdvReac Unknown GI DISTRESS Unverified 06/04/21 17:27 Medications Home Medications Medication Instructions Recorded Confirmed Last Taken ibuprofen 200 mg tablet 600 mg PO TID PRN 06/04/21 06/04/21 Unknown melatonin 5 mg tablet 15 mg PO HS 06/04/21 06/04/21 Unknown multivitamin 1 tab PO DAILY 06/04/21 06/04/21 Unknown NPO Date Last Intake of Fluids: 06/04/21 Time Last Intake of Fluids: 12:30 Date Last Intake of Solids: 06/04/21 Time Last Intake of Solids: 12:30 Past Medical History enlarged thyroid uterine fbroids ovarian cyst endometriosis costochondritis kidney stones Exercise / Class Metabolic Activity II 4-5 Yardwork/Stairs/Walk up hill Negative for chest pain or shortness of breath. Past Surgical History cyst removal on ankle wisdom teeth DandC of uterus Past Anesthesia History No Hx of Anesthesia Complications History of PONV No Hx of PONV and No Hx of Motion Sickness Social History Smoking Status: Current every day smoker Hx Alcohol Use: Yes alcohol intake frequency: a few times a month Review of Systems Positive for N/V Diarrhea Physical Exam Vital Signs Last Vital Signs Pulse 68 06/04/21 19:30 Resp 16 06/04/21 19:30 BP 120/70 06/04/21 19:30 Pulse Ox 98 06/04/21 19:30 Constitutional not obese ENMT Mouth: no TMJ abnormality and oral opening not small Thyromental Distance: > or= 3.5 Finger Breadths Mallampati Class: I Neck normal visual inspection; neck extension not limited Respiratory normal respiratory effort Auscultation: lungs clear to auscultation bilaterally Cardiovascular Rate/Rhythm: regular rate and regular rhythm Heart Sounds: no murmur Neurologic moves all extremities Psychiatric Orientation: alert and oriented x 3 Testing Laboratory Results 06/04/21 16:11 06/04/21 16:11 PT 10.3 Seconds (9.0-12.0) 06/04/21 17:31 INR 1.0 (0.9-1.1) 06/04/21 17:31 APTT 27.1 Seconds (21.0-31.0) 06/04/21 17:31
[2021-06-04] MEDS ORDERED: ONDANSETRON INJ 2 MG/ML 2 ML VIAL ONE ×2 (20:59)
[2021-06-04] MEDS ORDERED: DEXAMETHASONE SOD INJ 4 MG/ML VIAL ONE (20:59)
[2021-06-04] MEDS ORDERED: NEOSTIGMINE METHYLSULFATE 1 MG/ML 10ML VIAL ONE (21:00)
[2021-06-04] MEDS ORDERED: GLYCOPYRROLATE 0.2 MG/ML VIAL ONE (21:00)
[2021-06-04] MEDS ORDERED: KETOROLAC 30 MG/ML VIAL ONE (21:02)
--- NOTE | 2021-06-04 21:12 | Post Operative Brief Note ---
PG Immediate Post Op with CF Date of Surgery June 04, 2021 Pre & Post Diagnosis Operation Date: 06/04/21 20:00 Pre-Op Diagnosis: Appendicitis Post-Op Diagnosis: Appendicitis I identified the patient and participated in the time-out.: Yes Procedure Operation Date: 06/04/21 20:00 Actual Procedures p Laparoscopic Appendectomy(Not Applicable) - Bipin Osman DO Surgeon Bipin Osman DO Inspector Timers Kelechi Rg PA-C Estimated Blood Loss 5 Findings Consistent with Post-Op Diagnosis Specimens Specimen Description: A.) Appendix Drains Bush Catheter (16Fr bush placed by JOEY for during surgical case, removed at completion of surgery) Anesthesia Type General Complications none Disposition Disposition: Recovery Room
--- NOTE | 2021-06-04 21:16 | Operative Report ---
PG Post Operative Report Pre & Post Diagnosis Operation Date: 06/04/21 20:00 Pre-Op Diagnosis: Appendicitis Post-Op Diagnosis: Appendicitis I identified the patient and participated in the time-out.: Yes Procedure Operation Date: 06/04/21 20:00 Actual Procedures p Laparoscopic Appendectomy(Not Applicable) - Bipin Osman DO Surgeon Bipin Osman DO Blog Writer Kelechi Rg PA-C Estimated Blood Loss 5 Findings Consistent with Post-Op Diagnosis Specimens Appendix to pathology Drains None Anesthesia Type General Complications none Disposition Disposition: Recovery Room Indications 41 yo female with acute appendicitis Description of Procedure The patient was brought to the OR and placed in the supine position and SCD's placed. At this time she underwent general endotracheal anesthesia without incident. At this time a Berrios catheter was placed under sterile conditions. Her abdomen was prepped and draped in the usual sterile fashion. She was given appropriate pre-operative antibiotics. A timeout was called, the procedure was verified as Laparoscopic appendectomy, possible open. Surgical, anesthesia and nursing teams agreed and the procedure was begun. After injection of 0.25% Marcaine with epinephrine, a supraumbilical incision was made using a #11 blade scalpel and carried down to the fascia with a hemostat. The abdomen was then elevated with towel clamps and entered using the Veress needle confirming position using the saline drop test. Pneumoperitoneum was established and 5mm trocar was placed. Laparoscope was introduced. No injury was seen from our entrance to the abdomen. At this time a 5mm suprapubic port and 12mm LLQ port were placed under direct visualization. The patient was placed in Trendelenburg and rotated to the left. At this time the appendix was visualized and the tip was freed and elevated toward the abdominal wall. The appendix appeared inflamed, dilated and edematous. A window was created in the mesoappendix at the base of the appendix. A 45mm purple load stapler was then fired across the base of the appendix which appeared healthy. The mesoappendix was then taken using Harmonic device. The appendix was then placed in an Endocatch bag and removed through the LLQ port site. Staple line was inspected and was intact. Hemostasis was complete. A small amount of purulent fluid was suctioned out of the RLQ and pelvis. The 12 mm port was then closed at the fascial level using a 0 Vicryl suture using the suture passer. All ports were removed under direct v isualization and no bleeding was noted. The abdomen was desufflated and the skin was closed using 4-0 Monocryl in a subcuticular fashion. Sterile dressings were applied. Berrios catheter was removed. The patient was then awakened from anesthesia having remained stable throughout the entire case and transported to PACU. All needle and sponge counts were correct x 2. The physician podiatric assistant was present and scrubbed for the entirety of the case. He was essential in positioning, prepping and draping the patient, driving the laparoscope, retraction and exposure, closure of the incisions and placement the dressings. I attest to the content of the Intraoperative Record and any orders documented therein. Any exceptions are noted below.
[2021-06-04] MEDS ORDERED: PROMETHAZINE HCL 12.5 MG in SODIUM CHLORIDE 0.9% 50 ML IV PRN (21:27)
[2021-06-04] MEDS ORDERED: ePHEDrine sulfate 50 MG/ML AMP IV PRN (21:27)
[2021-06-04] MEDS ORDERED: ATROPINE SULFATE 0.1 MG/ML 10ML SYR IV PRN (21:27)
[2021-06-04] MEDS ORDERED: fentaNYL citrate 100 MCG/2 ML VIAL IV PRN (21:27)
[2021-06-04] MEDS ORDERED: MEPERIDINE HCL 25 MG/ML CARP/VIAL IV PRN (21:27)
[2021-06-04] MEDS ORDERED: HYDROmorphone INJ 1 MG/ML SYRINGE IV PRN (21:27)
--- NOTE | 2021-06-04 21:56 | Anesthesiology Progress Note ---
Date of Service June 04, 2021 Anesthesia Post Procedure Vital Signs Vital Signs: Temp Pulse Pulse Pulse Resp BP BP 06/04/21 21:45 76 16 118/58 L 06/04/21 21:35 86 16 125/57 L 06/04/21 21:25 36.8 C 111 H 16 137/65 06/04/21 19:30 68 16 120/70 06/04/21 18:30 62 18 146/82 H 06/04/21 18:15 62 133/75 06/04/21 18:00 64 18 159/90 H 06/04/21 17:48 63 20 06/04/21 17:30 19 135/76 06/04/21 17:08 148/81 H 06/04/21 17:06 62 20 06/04/21 17:00 135/56 L 06/04/21 16:51 59 L 20 06/04/21 16:37 138/80 06/04/21 16:36 20 06/04/21 16:20 58 L 14 123/75 06/04/21 16:14 123/75 06/04/21 16:06 BP Pulse Ox 06/04/21 21:45 100 06/04/21 21:35 100 06/04/21 21:25 100 06/04/21 19:30 98 06/04/21 18:30 99 06/04/21 18:15 99 06/04/21 18:00 100 06/04/21 17:48 133/75 100 06/04/21 17:30 95 06/04/21 17:08 06/04/21 17:06 148/81 H 100 06/04/21 17:00 06/04/21 16:51 135/56 L 100 06/04/21 16:37 06/04/21 16:36 100 06/04/21 16:20 96 06/04/21 16:14 06/04/21 16:06 96 Pain Intensity Abdomen: Pain Intensity: 10 Transfer of Care Handoff Completed per policy Notes Mental Status: alert / awake / arousable and participated in evaluation Patient Amnestic to Procedure: Yes Nausea / Vomiting: adequately controlled Pain: adequately controlled Airway Patency, RR, SpO2: stable & adequate BP & HR: stable & adequate Hydration State: stable & adequate Anesthetic Complications: no major complications apparent and Pt Satisfied with anesthetic care
[2021-06-04] MEDS ORDERED: LACTATED RINGER'S 1,000 ML IV SCH (22:36)
[2021-06-04] MEDS ORDERED: KETOROLAC TROMETHAMINE 15 MG/ML VIAL IV PRN (22:36)
[2021-06-04] MEDS ORDERED: MELATONIN 3 MG TAB PO PRN (22:41)
[2021-06-05] MEDS ORDERED: COUGH DROP (SUGAR FREE) LOZ 24 LOZ/1 BOX BUCCAL ONE (05:33)
--- NOTE | 2021-06-05 08:40 | Surgery Progress Note ---
Date of Service June 05, 2021 Assessment & Plan (1) Appendicitis: Plan: POD 1 lap appy increase diet, activity recheck later for d/c Admission and Anticipated Discharge Date Admission Date: June 04, 2021 Subjective tolerating clears, some pain RLQ Physical Exam Gastrointestinal (Abdomen): Inspection/Auscultation: + abdominal surgical incision (dressings intact) Percussion/Palpation: abdomen soft Results & Data ([facility]) Vital Signs (Past 12 Hours) Vital Signs Temp Pulse Pulse Resp BP BP Pulse Ox 06/05/21 05:36 37 C 60 16 93/59 L 100 06/05/21 01:45 37.2 C 65 14 95/59 L 99 06/05/21 00:27 36.4 C L 73 14 102/59 L 96 06/04/21 23:29 37.2 C 72 15 100/61 99 06/04/21 22:50 37.5 C 80 15 112/68 99 06/04/21 22:20 37.4 C 76 18 121/69 121/69 99 06/04/21 22:05 36.6 C 84 16 116/63 99 06/04/21 21:55 72 16 111/60 100 06/04/21 21:45 76 16 118/58 L 100 06/04/21 21:35 86 16 125/57 L 100 06/04/21 21:25 36.8 C 111 H 16 137/65 100 PG Care Time/CCT Total # of Minutes Spent Total Time Spent with Patient: Total time spent is greater than 50% in coordination of care (as documented) at patient's floor/unit and/or counseling patient: Coding Level of Care Code None Diagnoses Appendicitis K37
[2021-06-05] MEDS ORDERED: MULTIVITAMIN TAB PO SCH (09:00)
--- NOTE | 2021-06-05 10:34 | Discharge Summary ---
Date of Service June 05, 2021 Admission HPI Per Admitting Provider This is a 41-year-old female with no prior abdominal surgical history. The patient notes that she developed abdominal pain approximately 10:00 AM this morning. She notes that she has a history of ovarian cysts and felt that this was potentially the problem so she did not seek medical attention immediately. She notes that the pain is primary located in the right lower quadrant. She has associated nausea vomiting. She has not had any known fevers, shakes, chills. She does not note any modifying factors other than that the pain is provoked with any movement or palpation of her abdomen. Her most recent oral intake was at approximate 12:00 PM today. Did discuss with the treating emergency room physician and apparently the patient was experiencing some worsening pain in the emergency department waiting room had a syncopal or near syncopal episode while she was in the waiting room. Treating emergency room physician notes that the patient had recovered from this by the time he was able to evaluate her and his ensuing evaluation did not reveal any significant pathological findings that would have ascertain the etiology of this episode. In the emergency department patient had labs and imaging which independent reviewed. CBC revealed white blood cell count was 16.5. Hemoglobin, hematocrit, and platelet count are all within normal range. Coagulation studies were noted to be normal. Chemistry profile showed sodium, potassium, BUN, and creatinine were all noted be normal. Lactic acid was never noted to be normal. She did not have any elevation of her LFTs. Procalcitonin levels not elevated. A test is noted be negative. The patient was tested for COVID-19, influenza A, influenza B, and RSV all of which were negative. An EKG showed normal sinus rhythm. There is no evidence of acute ischemia.Chest x-ray was performed and was noted that showed no active disease in the chest. CT scan of the head showed no acute intracranial abnormalities. A CT scan of the abdomen and pelvis showed the patient had findings consistent with acute appendicitis. By CT scan there is no evidence of abscess or perforation. Patient was noted to have uterine masses that were felt to represent fibroids. There was also a 6.5 cm lesion containing a septation near the uterus which was felt to be related to an ovary. This finding was noted on prior CAT scans dating back to 2006. At the time of my interview the patient was resting comfortably bed she was no distress. Principal Diagnosis Acute appendicitis Discharge Exam Constitutional WD/WN, vitals as above Gastrointestinal (Abdomen) Inspection/Auscultation: + abdominal surgical incision (dressings intact); abdomen not distended Percussion/Palpation: abdomen soft Discharge Data Allergies Allergy/AdvReac Type Severity Reaction Status Date / Time bee venom protein (honey bee) Allergy Anaphylaxis Verified 06/04/21 17:27 erythromycin base AdvReac Unknown GI DISTRESS Unverified 06/04/21 17:27 Consultations 06/04/21 19:26 ED Decision to Admit Stat Procedures Performed Operation Date: 06/04/21 20:00 Actual Procedures p Laparoscopic Appendectomy(Not Applicable) - Bipin Osman DO Ordered Studies 06/04/21 16:17 CT abd pelvis IV con only Stat CT head/brain wo con Stat Hospital Course (1) Acute appendicitis: 41 y/o female presented to the ER with abdominal pain. White count was 16,[address] was consistent with acute appendicitis. She was taken to the operating room for laparoscopic appendectomy and transferred to the surgical floor for overnight observation. In the morning she was able to advance diet and tolerate oral analgesics. She was stable for discharge home. Total Time Total Time Spent Total Time Spent (In Minutes): 15 Discharge Plan Discharge Items Patient Disposition: Home - Self-Care Reason For Visit: APPY Discharge Diagnosis: Appendicitis Condition on Discharge: Good Activity: As commented below Activity Comment: Walk daily Lifting: No more than 10 pounds Bathing: May shower/bathe in 3 days Bathing Comment: No tub baths Exercise/Sports: Wait until after follow-up appointment Driving/Machine Use: When cleared by your surgeon Non-emergency contact: Surgeon Call non-emergency contact if: you have any medication questions Follow-up/Referrals: Bipin Osman DO [Physician] - (Call office for an appointment in 1-2 weeks) Alcon Tirado DO [Primary Care Provider] - Diet: Regular Addtl Attending Provider Instructions: Call office with questions Pending Studies at Discharge: No Stand-Alone Forms: [employer], Smoking Cessation Medications and DC Order Prescriptions: New oxycodone 5 mg tablet 5 - 10 mg PO Q4H Qty: 12 RF: 0 Continued multivitamin Tablet 1 tab PO DAILY RF: 0 ibuprofen 200 mg Tablet 600 mg PO TID PRN (Reason: Pain) RF: 0 melatonin 5 mg Tablet 15 mg PO HS RF: 0 Discharge Orders: Discharge Order (Routine); Ordered 06/05/21 Ordered By: Cosmo Rock Jr Admission Data Admit Date/Time: 06/04/21 21:58 Attending Provider: Bipin Osman Admit Provider: Bipin Osman Primary Care Provider: Alcon Tirado Other Providers: Bipin Osman Coding Level of Care Code D/C DAY MANAGEMENT <30 MINS Diagnoses Acute appendicitis K35.30 Acute appendicitis type: with localized peritonitis Appendicitis abscess presence: without abscess Appendicitis gangrene presence: without gangrene Appendicitis perforation presence: without perforation
--- NOTE | 2021-06-05 13:08 | Electrocardiogram Report ---
Test Reason : Blood Pressure : / mmHG Vent. Rate : 064 BPM Atrial Rate : 064 BPM P-R Int : 134 ms QRS Dur : 072 ms QT Int : 432 ms P-R-T Axes : 063 075 063 degrees QTc Int : 445 ms Normal sinus rhythm Possible Left atrial enlargement Borderline ECG When compared with ECG of 01-AUG-2014 20:41, No significant change was found Confirmed by Demario Martinez ([id number]) on 06/05/2021 1:07:35 PM Referred By: REFERRED SELF Confirmed By:Demario Martinez
== END 2021-06-05 14:10 | disposition home or self-care (01) ==
LOC: ED 15:47 → ASU 19:48 → 3E 19:48